=== PATIENT | male | born 1930 | race Caucasian/White ===

== ENCOUNTER 2017-08-21 15:03 | Observation (INO) | payer MEDICARE, OTHER ==
[2017-08-21] VITALS (7 sets, daily range): BP systolic 145–181; BP diastolic 73–120; PULSE 61–68; RESP 16–21; TEMP 97.8–98.3; O2SAT 95–98
[~2017-08-21] VITALS: Ht 180.3 cm; Wt 110.0 kg
[~2017-08-21 15:03] MED LIST: ASPI81TA82 PO; DIGO0.12 PO; DILTCD300 PO; ESCI10TA PO; FINA5TAB77 PO; FURO20 PO; KLORCONEF PO; LAMO25TA PO; LEVEMIR SQ; METO50TA PO; ROSU20 PO
--- NOTE | 2017-08-21 15:12 | PD ---
HPI Chief Complaint: SEIZURE Time Seen by Provider: 15:08 Travel History International Travel<30 days: No Contact w/Intl Traveler<30days: No Traveled to known affect area: No History of Present Illness HPI PATIENT HAD A SEIZURE (HAS A HISTORY OF, ON LAMICTAL) WITNESSED BY DAUGHTER, DESCRIBED TONIC CLONIC, BUT ACCORDING TO DAUGHTER , PT HAD A MUCH LONGER POST ICTAL PHASE THAN USUAL. 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 NO ALLEVIATING/AGGRAVATING FACTORS PFSH Past Medical History Hx Anticoagulant Therapy: Yes (asa 81mg) Atrial Fibrillation: Yes Cardiac Catheterization: Yes Cardiovascular Problems: Yes High Cholesterol: Yes Cerebrovascular Accident: Yes (htn, stroke) Diabetes: Yes (type II) Diminished Hearing: Yes Gastrointestinal Disorders: Yes (hx constipation) Genitourinary: Yes (frequent UTIs) Neurologic: Yes Immunizations Current: Yes Seizures: Yes Past Surgical History Cardiac Surgery: Yes (valve repair) Coronary Artery Bypass Graft: Yes (PVC filter in leg) Other Surgery: Yes (pvc filter) Social History Alcohol Use: No Tobacco Use: No Substance Use: No Allergies-Medications (Allergen,Severity, Reaction): Coded Allergies: penicillin G (Verified Allergy, Unknown, HIVES, 08/21/17) Reported Meds & Prescriptions Reported Meds & Active Scripts Active Reported Levemir Inj (Insulin Detemir) 1,000 unit/ 10 ML Vial 45 Units SQ HS Do not mix with any other Insulin. Lasix (Furosemide) 40 Mg Tab 40 Mg PO DAILY@1600 Crestor (Rosuvastatin Calcium) 20 Mg Tab 20 Mg PO DAILY@1600 Aspirin 81 Mg Chew 81 Mg PO DAILY Diltiazem ER 24 HR 360 Mg Hieu 360 Mg PO DAILY Lanoxin (Digoxin) 125 Mcg Tablet 125 Mcg PO DAILY Metoprolol Tartrate 50 Mg Tab 50 Mg PO BID Review of Systems Except as stated in HPI: all other systems reviewed are Neg Neurologic: Positive: Seizures Physical Exam Narrative GENERAL: SKIN: Warm and dry. HEAD: Atraumatic. Normocephalic. EYES: Pupils equal and round. No scleral icterus. No injection or drainage. ENT: No nasal bleeding or discharge. Mucous membranes pink and moist. NECK: Trachea midline. No JVD. CARDIOVASCULAR: Regular rate and rhythm. RESPIRATORY: No accessory muscle use. Clear to auscultation. Breath sounds equal bilaterally. GASTROINTESTINAL: Abdomen soft, non-tender, nondistended. Hepatic and splenic margins not palpable. MUSCULOSKELETAL: Extremities without clubbing, cyanosis, or edema. No obvious deformities. NEUROLOGICAL: Awake and alert. PATIENT HAS RIGHT SIDED HEMIPARESIS OF RT FACE/ RT ARM/RT LE PSYCHIATRIC: Appropriate mood and affect; insight and judgment normal. Data Data Last Documented VS Orders Orders Electrocardiogram (08/21/17 15:12) Complete Blood Count With Diff (08/21/17 15:12) Comprehensive Metabolic Panel (08/21/17 15:12) Prothrombin Time / Inr (Pt) (08/21/17 15:12) Act Partial Throm Time (Ptt) (08/21/17 15:12) Troponin I (08/21/17 15:12) Thyroid Stimulating Hormone (08/21/17 15:12) Urinalysis - C+S If Indicated (08/21/17 15:12) Chest, Single Ap (08/21/17 15:12) Ct Brain W/O Iv Contrast(Rout) (08/21/17 15:12) Blood Glucose (08/21/17 15:12) Ecg Monitoring (08/21/17 15:12) Iv Access Insert/Monitor (08/21/17 15:12) Oximetry (08/21/17 15:12) Sodium Chloride 0.9% Flush (Ns Flush) (08/21/17 15:15) Drug Screen, Random Urine (08/21/17 15:12) Alcohol (Ethanol) (08/21/17 15:12) Tylenol (Acetaminophen) (08/21/17 15:12) Salicylates (Aspirin) (08/21/17 15:12) Admit Order (Ed Use Only) (08/21/17 18:55) Labs Laboratory Tests Test 08/21/17 15:30 08/21/17 16:00 White Blood Count 8.3 TH/MM3 Red Blood Count 5.09 MIL/MM3 Hemoglobin 16.0 GM/DL Hematocrit 47.9 % Mean Corpuscular Volume 94.0 FL Mean Corpuscular Hemoglobin 31.5 PG Mean Corpuscular Hemoglobin Concent 33.5 % Red Cell Distribution Width 14.7 % Platelet Count 110 TH/MM3 Mean Platelet Volume 10.4 FL Neutrophils (%) (Auto) 74.5 % Lymphocytes (%) (Auto) 13.1 % Monocytes (%) (Auto) 10.0 % Eosinophils (%) (Auto) 1.5 % Basophils (%) (Auto) 0.9 % Neutrophils # (Auto) 6.2 TH/MM3 Lymphocytes # (Auto) 1.1 TH/MM3 Monocytes # (Auto) 0.8 TH/MM3 Eosinophils # (Auto) 0.1 TH/MM3 Basophils # (Auto) 0.1 TH/MM3 CBC Comment DIFF FINAL Differential Comment Prothrombin Time 11.1 SEC Prothromb Time International Ratio 1.0 RATIO Activated Partial Thromboplast Time 29.7 SEC Blood Urea Nitrogen 20 MG/DL Creatinine 1.06 MG/DL Random Glucose 275 MG/DL Total Protein 7.8 GM/DL Albumin 3.5 GM/DL Calcium Level 8.8 MG/DL Alkaline Phosphatase 150 U/L Aspartate Amino Transf (AST/SGOT) 15 U/L Alanine Aminotransferase (ALT/SGPT) 21 U/L Total Bilirubin 0.7 MG/DL Sodium Level 135 MEQ/L Potassium Level 4.0 MEQ/L Chloride Level 98 MEQ/L Carbon Dioxide Level 29.8 MEQ/L Anion Gap 7 MEQ/L Estimat Glomerular Filtration Rate 66 ML/MIN Troponin I 0.10 NG/ML Thyroid Stimulating Hormone 3rd Gen 1.460 uIU/ML Salicylates Level LESS THAN 1.7 MG/DL Acetaminophen Level LESS THAN 2.0 MCG/ML Ethyl Alcohol Level LESS THAN 3 MG/DL Urine Color YELLOW Urine Turbidity CLEAR Urine pH 6.5 Urine Specific [place] 1.020 Urine Protein 300 mg/dL Urine Glucose (UA) 300 mg/dL Urine Ketones NEG mg/dL Urine Occult Blood TRACE Urine Nitrite NEG Urine Bilirubin NEG Urine Urobilinogen 4.0 MG/DL Urine Leukocyte Esterase NEG Urine RBC 1 /hpf Urine WBC LESS THAN 1 /hpf Urine Mucus FEW /lpf Microscopic Urinalysis Comment CATH-CULT NOT IND Urine Opiates Screen NEG Urine Barbiturates Screen NEG Urine Amphetamines Screen NEG Urine Benzodiazepines Screen NEG Urine Cocaine Screen NEG Urine Cannabinoids Screen NEG MDM Medical Decision Making Medical Screen Exam Complete: Yes Emergency Medical Condition: Yes Medical Record Reviewed: Yes Interpretation(s) AFIB WITH CVR, RBBB Differential Diagnosis POST ICTAL V ICH V UTI V PNA V ELECTROLYTE ABNL Narrative Course ON EVALUATION PATIENT WAS FOUND TO HAVE NO ICH ON CT SCAN, NO E/O UTI, NEG TOX SCREEN, NO DIG TOXICITY, NO ANEMIA OR LEUKOCYTOSIS. ELECTROLYTES WERE WNL, HOWEVER ELEVATED TROPONIN AND HYPERGLYCEMIA. PATIENT WILL BE ADMITTED DUE TO POSSIBLE NONSTEMI Critical Care Narrative CRITICAL CARE NOTE: With evaluation of the patient, labs, EKG, receipt of radiologic studies, administration of medications, reevaluation the patient and discussion of the patient with the admitting physicians, the total critical care time was [45] minutes. Time to perform other separately billable procedures was not included in the critical care time. Diagnosis Primary Impression: SEIZURE (HISTORY OF) Additional Impression: ELEVATED TROPONIN Admitting Information Admitting Physician Requests: Observation Scripts Lamotrigine (Lamictal) 25 Mg Tab 50 MG PO Q8H for seizures, #90 TAB Prov: Chioma Davidson MD 08/23/17 Losartan (Cozaar) 50 Mg Tab 100 MG PO DAILY for hypertension, #30 TAB Prov: Chioma Davidson MD 08/23/17 Lisinopril (Lisinopril) 5 Mg Tab 5 MG PO DAILY for hypertension, #30 TAB Prov: Chioma Davidson MD 08/23/17 Oj Friedman MD Aug 21, 2017 15:12
[2017-08-21] MEDS ORDERED: SODIUM CHLORIDE 0.9% FLUSH 5 ML FLUSH IV FLUSH PRN (15:15)
[2017-08-21] MEDS ORDERED: DILT1TAB8 PO (15:38)
[2017-08-21] MEDS ORDERED: LANO0.12 PO (15:38)
[2017-08-21] MEDS ORDERED: ROSU20 PO (15:38)
[2017-08-21] MEDS ORDERED: ASPI81CH PO (15:38)
[2017-08-21] MEDS ORDERED: FURO1TAB60 PO (15:38)
[2017-08-21] MEDS ORDERED: LAMO25TA PO (15:38)
[2017-08-21] MEDS ORDERED: METO50TA PO (15:38)
[2017-08-21] MEDS ORDERED: LEVEMIR SQ (15:38)
[2017-08-21 15:53] LABS: AUTOMATED NEUTROPHIL # 6.2 TH/MM3 (1.8-7.7); BASOPHIL # 0.1 TH/MM3 (0-0.2); BASOPHIL % 0.9 % (0.0-2.0); EOSINOPHIL # 0.1 TH/MM3 (0-0.4); EOSINOPHIL % 1.5 % (0.0-4.0); HEMATOCRIT 47.9 % (39.0-51.0); HEMO FLAGS DIFF FINAL; LYMPH % 13.1 % (9.0-44.0); LYMPHOCYTE # 1.1 TH/MM3 (1.0-4.8); MEAN CORPUSCULAR HEMOGLOBIN 31.5 PG (27.0-34.0); MEAN CORPUSCULAR HGB CONC 33.5 % (32.0-36.0); NEUT % 74.5 % (16.0-70.0); PLATELET COUNT 110 TH/MM3 (150-450); RED BLOOD COUNT 5.09 MIL/MM3 (4.50-5.90); RED CELL DISTRIBUTION WIDTH 14.7 % (11.6-17.2); WHITE BLOOD COUNT 8.3 TH/MM3 (4.0-11.0)
[2017-08-21 16:11] LABS: APTT (PATIENT) 29.7 SEC (24.3-30.1); PROTHROMBIN TIME - PATIENT 11.1 SEC (9.8-11.6)
[2017-08-21 16:13] LABS: ALT (GPT) 21 U/L (12-78); ANION GAP 7 MEQ/L (5-15); AST (GOT) 15 U/L (15-37); BICARBONATE 29.8 MEQ/L (21.0-32.0); BLOOD UREA NITROGEN 20 MG/DL (7-18); CHLORIDE 98 MEQ/L (98-107); GLOMERULAR FILTRATION RATE 66 ML/MIN (>89); SODIUM (NA) 135 MEQ/L (136-145)
[2017-08-21 16:19] LABS: ACETAMINOPHEN LESS THAN 2.0 MCG/ML (10.0-30.0); ALCOHOL LESS THAN 3 MG/DL (0-5)
[2017-08-21 16:23] LABS: ALKALINE PHOSPHATASE 150 U/L (45-117); TOTAL BILIRUBIN ADULT 0.7 MG/DL (0.2-1.0)
--- NOTE | 2017-08-21 16:27 | RADRPT ---
EXAM DATE/TIME: 08/21/2017 15:48 [facility] COMPARISON: CHEST SINGLE AP, January 14, 2016, 10:53. INDICATIONS : Seizures. MEDICAL HISTORY : Stroke. Cardiovascular disease. Seizures SURGICAL HISTORY : Valve replacement. ENCOUNTER: Initial ACUITY: 1 day PAIN SCORE: 0/10 LOCATION: Bilateral chest FINDINGS: Cardiac valvular prosthesis, median sternotomy and cardiomegaly again noted. Aortic calcification is present. The lungs are clear. CONCLUSION: No significant change has occurred. Matt Valerio MD on August 21, 2017 at 16:25 Board Certified Radiologist. This report was verified electronically.
[2017-08-21 17:00] LABS: BLOOD, URINE TRACE (NEG); GLUCOSE,URINE 300 mg/dL (NEG); KETONE, URINE NEG (NEG); MUCUS URINE FEW /lpf (OCC); NITRITE,URINE NEG (NEG); PH, URINE 6.5 (5.0-8.5); URINE COLOR YELLOW (YELLW/STRAW)
[2017-08-21 17:01] LABS: COMMENT (UR) CATH-CULT NOT IND; CULTURE IF INDICATED CATH CULTURE NOT IND
--- NOTE | 2017-08-21 17:42 | RADRPT ---
EXAM DATE/TIME: 08/21/2017 17:14 [facility] COMPARISON: CT BRAIN W/O CONTRAST, January 14, 2016, 11:55. INDICATIONS : Seizure. RADIATION DOSE: 41.32 CTDIvol (mGy) MEDICAL HISTORY : Cardiovascular disease. Stroke Seizures. SURGICAL HISTORY : CABG ENCOUNTER: Initial ACUITY: 1 day PAIN SCALE: 0/10 LOCATION: cranial TECHNIQUE: Multiple contiguous axial images were obtained of the head. Using automated exposure control and adj ustment of the mA and/or kV according to patient size, radiation dose was kept as low as reasonably a chievable to obtain optimal diagnostic quality images. DICOM format image data is available electro nically for review and comparison. FINDINGS: There is atrophy and encephalomalacia from a remote left MCA infarct, with ex vacuo dilatation of the left lateral ventricle. There is a stable hyperdensity in the left frontal region measuring 2.5 cm c haracteristic of a dystrophic calcification/calcified mass unchanged. No fractures. There are no sign s of acute infarct, or intracranial hemorrhage. CONCLUSION: No significant change has occurred. Matt Valerio MD on August 21, 2017 at 17:38 Board Certified Radiologist. This report was verified electronically.
[2017-08-21] MEDS ORDERED: LORazepam 2 MG/ML VIAL IV PUSH PRN (20:45)
[2017-08-21] MEDS ORDERED: GLUCAGON 1 MG/ML VIAL OTHER PRN (20:45)
[2017-08-21] MEDS ORDERED: DEXTROSE 50% IN WATER 50 ML VIAL(D50) IV PUSH PRN (20:45)
[2017-08-21] MEDS: INSULIN DETEMIR 100 UNITS/ML VIAL SQ SCH (21:00)
[2017-08-21] MEDS: ENOXAPARIN SODIUM 40 MG/0.4 ML SYRINGE SQ SCH (21:43)
[2017-08-21] MEDS: INSULIN ASPART SUPPLEMENTAL SCALE SQ SCH (21:43)
[2017-08-21] MEDS: METOPROLOL TARTRATE 50 MG TAB PO SCH (22:53)
[2017-08-21] MEDS: SODIUM CHLOR 0.45% 1000 ML INJ 1,000 ML IV SCH (22:53)
[2017-08-21 23:41] LABS: HDL CHOLESTEROL 42.2 MG/DL (40.0-60.0)
[2017-08-22 03:11] VITALS: BP 147/80; PULSE 62; RESP 18; TEMP 98.1; O2SAT 95
[2017-08-22 07:22] VITALS: BP 189/84; PULSE 65; RESP 18; TEMP 98; O2SAT 95
[2017-08-22] MEDS ORDERED: lamoTRIgine 25 MG TAB PO SCH ×3 (09:00→16:00)
[2017-08-22] MEDS ORDERED: DILTIAZEM-CD 180 MG CAP ER PO SCH (09:00)
[2017-08-22] MEDS: SODIUM CHLOR 0.45% 1000 ML INJ 1,000 ML IV SCH ×2 (09:24→21:45)
[2017-08-22] MEDS: ASPIRIN 81 MG CHEW TAB PO SCH (09:25)
[2017-08-22] MEDS: FINASTERIDE 5 MG TAB PO SCH (09:25)
[2017-08-22] MEDS: METOPROLOL TARTRATE 50 MG TAB PO SCH ×2 (09:25→21:45)
[2017-08-22] MEDS: DIGOXIN 0.125 MG TAB PO SCH (09:25)
[2017-08-22] MEDS: INSULIN ASPART SUPPLEMENTAL SCALE SQ SCH ×4 (09:29→21:45)
[2017-08-22] MEDS ORDERED: ENALAPRILAT 1.25 MG/ML VIAL IV PUSH PRN (09:30)
--- NOTE | 2017-08-22 09:34 | HHI.HP ---
HPI Service [facility] Primary Care Physician Manuel Goss MD Admission Diagnosis ELEVATED TROPONIN/SEIZURE Diagnoses: Chief Complaint: seizure Travel History International Travel<30 Days: No Contact w/Intl Traveler <30 Da: No Traveled to Known Affected Are: No History of Present Illness Mr. Huff is an 87-year-old elderly male with significant past medical history of seizures since 2009, stroke with right-sided hemiparesis, hypertension, hyperlipidemia, A. fib, history of DVT with IVC filter, possible underlying dementia. Patient presented to the emergency room after he was noted having a seizure. Patient is unable to provide information, information is obtained from the chart in the patient's daughter who is the caregiver. According to the daughter, patient has had history of seizures since 2009 after his stroke. Since then he has tried Keppra and Dilantin with no improvement. He is currently on Lamictal, has been doing a relatively good job of controlling the grandmal seizures. However he continues to have a small focal type seizures, approximately 2-3 a week. He has episodes off jerking and stiffening followed by postictal phase that usually lasts a few minutes where he closes his eyes and sleeps. Yesterday, he had small seizure around 2pm then had another later in the day and noted hthat the postictal phase was longer than usual and he was sticking his tongue out. She attempted to wake him up and he appeared more lethargic than usual. Indicates that the last grandmal seizure was approximately 2 years ago. He follows up with neurologist Dr. Kent as outpatient. Patient has a CVA in 2010 inches stand he's had right hemiparesis and has garbled speech. Indicates that he is usually oriented to others and self and does follow commands. Has noticed in the last couple days he has been refusing medications and has not been taking them on time but does take them all. Patient is mainly wheelchair and bedbound. He requires assistance with all ADLs. In the emergency room, patient was evaluated. Laboratory workup was completed. He was noted with elevated troponin, first one was 0.10 the next 0.09 and 0.09. Patient is asked if he had pain he states he has pain everywhere however he is difficult to obtain any information. His blood pressure was noted elevated on admission, this morning he is 189/84. His hvac installation technician is Dr. Lopez. CT of the head did not show any acute findings. At this time, patient is resting comfortably, he wants something to eat and drink. End-of-life care issues have been discussed with daughter, she is requesting DO NOT RESUSCITATE. Patient is admitted for further evaluation and treatment. Review of Systems ROS Limitations: Altered Mental Status, Poor Historian Past Family Social History Past Medical History Hypertension Type 2 diabetes Hyperlipidemia History DVT, has IVC filter Atrial fibrillation, used to be on Coumadin. One of the strokes he had was while being on Coumadin. No longer takes anticoagulation, only on baby aspirin. Seizures since 2009 Stroke in 2009 and then had another one in 2012, has residual right-sided hemiparesis with speech difficulty. Constipation Frequent UTIs Enlarged prostate Right leg cellulitis, has chronic edema. Past Surgical History CABG and mitral valve repair in 2004 IVC filter insertion Right forearm and right leg repair after fracture. Dental extraction Reported Medications Reported Meds & Active Scripts Active Reported Levemir Inj (Insulin Detemir) 1,000 unit/ 10 ML Vial 45 Units SQ HS Do not mix with any other Insulin. Lasix (Furosemide) 40 Mg Tab 40 Mg PO DAILY@1600 Crestor (Rosuvastatin Calcium) 20 Mg Tab 20 Mg PO DAILY@1600 Lamotrigine 25 Mg Tab 50 Mg PO DAILY@1600 Aspirin 81 Mg Chew 81 Mg PO DAILY Diltiazem ER 24 HR 360 Mg Hieu 360 Mg PO DAILY Lanoxin (Digoxin) 125 Mcg Tablet 125 Mcg PO DAILY Metoprolol Tartrate 50 Mg Tab 50 Mg PO BID Allergies: Coded Allergies: penicillin G (Verified Allergy, Unknown, HIVES, 08/21/17) Active Ordered Medications Inpatient Medications Aspirin (Aspirin Chew) 81 mg DAILY PO ; Start 08/22/17 at 09:00 Atorvastatin Calcium (Lipitor) 40 mg DAILY@1600 PO ; Start 08/22/17 at 16:00 Dextrose (D50w (Vial) Inj) 50 ml UNSCH PRN IV PUSH HYPOGLYCEMIA-SEE COMMENTS; Start 08/21/17 at 20:45 Digoxin (Lanoxin) 0.125 mg DAILY PO ; Start 08/22/17 at 09:00 Diltiazem HCl (Cardizem Cd) 360 mg DAILY PO ; Start 08/22/17 at 09:00 Enoxaparin Sodium (Lovenox Inj) 40 mg Q24H SQ Last administered on 08/21/17 21 :43; Start 08/21/17 at 21:00 Finasteride (Proscar) 5 mg DAILY PO ; Start 08/22/17 at 09:00 Furosemide (Lasix) 40 mg DAILY@1600 PO ; Start 08/22/17 at 16:00 Glucagon (Glucagon Inj) 1 mg UNSCH PRN OTHER HYPOGLYCEMIA-SEE COMMENTS; Start 08/21/17 at 20:45 Insulin Aspart (NovoLOG SUPPLEMENTAL SCALE) 1 ACHS SLIDING SCALE SQ Last administered on 08/21/17 21:43; Start 08/21/17 at 21:00 Insulin Detemir (Levemir Inj) 45 units HS SQ ; Start 08/21/17 at 21:00 IV Flush (NS Flush) 2 ml UNSCH PRN IV FLUSH FLUSH AFTER USING IV ACCESS Last administered on 08/21/17 15:32; Start 08/21/17 at 15:15 Lamotrigine (LaMICtal) 50 mg Q12HR PO ; Start 08/22/17 at 09:00 Lorazepam (Ativan Inj) 1 mg Q4H PRN IV PUSH SEIZURE; Start 08/21/17 at 20:45 Metoprolol Tartrate (Lopressor) 50 mg BID PO Last administered on 08/21/17 22: 53; Start 08/21/17 at 21:00 Sodium Chloride 1,000 ml @ 84 mls/hr [id number] IV Last administered on 22:53; Start 08/21/17 at 21:00 Family History Reviewed, noncontributory Social History Patient is a , lives with daughter who is his caregiver. He also has a home health aid who comes in for 6 hours a day to help. No smoking, no alcohol , no substance abuse. Physical Exam Vital Signs Vital Signs Date Time Temp Pulse Resp B/P (MAP) Pulse Ox O2 Delivery O2 Flow Rate FiO2 08/22/17 07:22 98.0 65 18 189/84 (119) 95 08/22/17 03:11 98.1 62 18 147/80 (102) 95 08/21/17 23:11 98.2 64 18 159/120 (133) 95 08/21/17 21:53 70 18 181/83 (115) 96 08/21/17 20:19 98.3 62 21 169/79 (109) 95 Room Air 08/21/17 18:32 97.8 61 16 161/82 (108) 97 Room Air 08/21/17 17:08 97.8 68 17 145/73 (97) 98 Room Air 08/21/17 15:19 17 97 Room Air 08/21/17 15:10 67 18 98 Room Air 08/21/17 15:06 97.8 67 18 179/84 (115) 97 Physical Exam GENERAL: This is a well-nourished, well-developed patient, in no apparent distress. SKIN: No rashes, ecchymoses or lesions. Cool and dry. HEAD: Atraumatic. Normocephalic. No temporal or scalp tenderness. EYES: Pupils equal round and reactive. Extraocular motions intact. No scleral icterus. No injection or drainage. ENT: Nose without bleeding, purulent drainage or septal hematoma. Throat without erythema, tonsillar hypertrophy or exudate. Uvula midline. Airway patent. NECK: Trachea midline. No JVD or lymphadenopathy. Supple, nontender, no meningeal signs. CARDIOVASCULAR: Irregularly irregular, no murmurs. RESPIRATORY: Clear to auscultation. Breath sounds equal bilaterally. No wheezes , rales, or rhonchi. GASTROINTESTINAL: Abdomen soft, non-tender, nondistended. No hepato-splenomegaly , or palpable masses. No guarding. MUSCULOSKELETAL: No joint abnormality. Atrophy to both lower extremities. Right leg and foot noted edematous, 1-2+, this is chronic. Bilateral pedal pulses 2+ bilaterally. NEUROLOGICAL: Awake, oriented to self and others. Speech garbled. Speaks mainly Croatian. Doesn't follow commands consistently. Right-sided hemiparesis. Facial droop. Laboratory Laboratory Tests Test 08/21/17 15:30 08/21/17 16:00 08/21/17 23:00 08/22/17 05:45 White Blood Count 8.3 Red Blood Count 5.09 Hemoglobin 16.0 Hematocrit 47.9 Mean Corpuscular Volume 94.0 Mean Corpuscular Hemoglobin 31.5 Mean Corpuscular Hemoglobin Concent 33.5 Red Cell Distribution Width 14.7 Platelet Count 110 Mean Platelet Volume 10.4 Neutrophils (%) (Auto) 74.5 Lymphocytes (%) (Auto) 13.1 Monocytes (%) (Auto) 10.0 Eosinophils (%) (Auto) 1.5 Basophils (%) (Auto) 0.9 Neutrophils # (Auto) 6.2 Lymphocytes # (Auto) 1.1 Monocytes # (Auto) 0.8 Eosinophils # (Auto) 0.1 Basophils # (Auto) 0.1 CBC Comment DIFF FINAL Differential Comment Prothrombin Time 11.1 Prothromb Time International Ratio 1.0 Activated Partial Thromboplast Time 29.7 Blood Urea Nitrogen 20 Creatinine 1.06 Random Glucose 275 Total Protein 7.8 Albumin 3.5 Calcium Level 8.8 Alkaline Phosphatase 150 Aspartate Amino Transf (AST/SGOT) 15 Alanine Aminotransferase (ALT/SGPT) 21 Total Bilirubin 0.7 Sodium Level 135 Potassium Level 4.0 Chloride Level 98 Carbon Dioxide Level 29.8 Anion Gap 7 Estimat Glomerular Filtration Rate 66 Troponin I 0.10 0.09 0.09 Thyroid Stimulating Hormone 3rd Gen 1.460 Salicylates Level LESS THAN 1.7 Acetaminophen Level LESS THAN 2.0 Ethyl Alcohol Level LESS THAN 3 Urine Color YELLOW Urine Turbidity CLEAR Urine pH 6.5 Urine Specific [place] 1.020 Urine Protein 300 Urine Glucose (UA) 300 Urine Ketones NEG Urine Occult Blood TRACE Urine Nitrite NEG Urine Bilirubin NEG Urine Urobilinogen 4.0 Urine Leukocyte Esterase NEG Urine RBC 1 Urine WBC LESS THAN 1 Urine Mucus FEW Microscopic Urinalysis Comment CATH-CULT NOT IND Urine Opiates Screen NEG Urine Barbiturates Screen NEG Urine Amphetamines Screen NEG Urine Benzodiazepines Screen NEG Urine Cocaine Screen NEG Urine Cannabinoids Screen NEG Triglycerides Level 85 Cholesterol Level 85 LDL Cholesterol 26 HDL Cholesterol 42.2 Cholesterol/HDL Ratio 2.01 Result Diagram: 08/21/17 1530 08/21/17 1530 Imaging Last Impressions Head CT 08/21/17 151 Signed Impressions: Service Date/Time: Monday, August 21, 2017 17:14 - CONCLUSION: No significant change has occurred. Matt Valerio MD Chest X-Ray 08/21/17 151 Signed Impressions: Service Date/Time: Monday, August 21, 2017 15:48 - CONCLUSION: No significant change has occurred. MD Carlos Bakeri VTE Risk Assessment Caprini VTE Risk Assessment: Mod/High Risk (score >= 2) Caprini Risk Assessment Model Point Value = 1 Point Value = 2 Point Value = 3 Point Value = 5 Age 41-60 Minor surgery BMI > 25 kg/m2 Swollen legs Varicose veins or History of unexplained or recurrent spontaneous Oral contraceptives or hormone replacement Sepsis (< 1 month) Serious lung disease, including pneumonia (< 1 month) Abnormal pulmonary function Acute myocardial infarction Congestive heart failure (< 1 month) History of inflammatory bowel disease Medical patient at bed rest Age 61-74 Arthroscopic surgery Major open surgery (> 45 min) Laparoscopic surgery (> 45 min) Malignancy Confined to bed (> 72 hours) Immobilizing plaster cast Central venous access Age >= 75 History of VTE Family history of VTE Factor V Leiden Prothrombin [id number] Lupus anticoagulant Anticardiolipin antibodies Elevated serum homocysteine Heparin-induced thrombocytopenia Other congenital or acquired thrombophilia Stroke (< 1 month) Elective arthroplasty Hip, pelvis, or leg fracture Acute spinal cord injury (< 1 month) Prophylaxis Regimen Total Risk Factor Score Risk Level Prophylaxis Regimen 0-1 Low Early ambulation 2 Moderate Order ONE of the following: *Sequential Compression Device (SCD) *Heparin 5000 units SQ BID 3-4 Higher Order ONE of the following medications: *Heparin 5000 units SQ TID *Enoxaparin/Lovenox 40 mg SQ daily (WT < 150 kg, CrCl > 30 mL/min) *Enoxaparin/Lovenox 30 mg SQ daily (WT < 150 kg, CrCl > 10-29 mL/min) *Enoxaparin/Lovenox 30 mg SQ BID (WT < 150 kg, CrCl > 30 mL/min) AND/OR *Sequential Compression Device (SCD) 5 or more Highest Order ONE of the following medications: *Heparin 5000 units SQ TID (Preferred with Epidurals) *Enoxaparin/Lovenox 40 mg SQ daily (WT < 150 kg, CrCl > 30 mL/min) *Enoxaparin/Lovenox 30 mg SQ daily (WT < 150 kg, CrCl > 10-29 mL/min) *Enoxaparin/Lovenox 30 mg SQ BID (WT < 150 kg, CrCl > 30 mL/min) AND *Sequential Compression Device (SCD) Assessment and Plan Problem List: (1) Recurrent seizures ICD Codes: G40.909 - Epilepsy, unspecified, not intractable, without status epilepticus Status: Acute (2) Elevated troponin ICD Codes: R74.8 - Abnormal levels of other serum enzymes Status: Acute (3) Hypertension, uncontrolled ICD Codes: I10 - Essential (primary) hypertension Status: Acute (4) History of CVA with residual deficit ICD Codes: I69.30 - Unspecified sequelae of cerebral infarction Status: Chronic (5) Diabetes 1.5, managed as type 2 ICD Codes: E10.9 - Type 1 diabetes mellitus without complications Status: Chronic (6) Hyperlipidemia ICD Codes: E78.5 - Hyperlipidemia, unspecified Status: Chronic (7) Atrial fibrillation ICD Codes: I48.91 - Unspecified atrial fibrillation Status: Chronic (8) Hx of deep venous thrombosis ICD Codes: Z86.718 - Personal history of other venous thrombosis and embolism Status: Chronic Assessment and Plan Admit to Dr. Cullen 87-year-old elderly male with history of stroke and right-sided hemiparesis and grand mal seizures. Presented to the emergency room after having a seizure with a prolonged postictal state. Recurrent seizures -Continue with seizure precautions -Neurology consultation -Continue with Lamictal 50 mg by mouth twice a day -EEG has been ordered -Ativan as needed for seizures Elevated troponin, rule out acute coronary syndrome. -Troponin 3 sets completed, results indeterminate. Patient was noted with elevated blood pressure. -Cardiology consultation -Continuous cardiac telemetry -Continue with aspirin 81 mg by mouth daily Hypertension uncontrolled -Continue with Lasix 40 mg by mouth daily -Continue with diltiazem 360 mg by mouth daily -Continue with Lopressor 50 mg by mouth twice a day -We'll add Vasotec 1.25 mg IV every 6 when necessary for systolic 170 and diastolic and 90 Type 2 diabetes -Accu-Cheks before meals and at bedtime with insulin therapy as needed Atrial fibrillation, stable -Continue with diltiazem and digoxin -Continue with aspirin Hyperlipidemia -Continue with atorvastatin 40 mg by mouth daily History DVT, has IVC filter -Lovenox 40 mg subcutaneous daily for DVT prophylaxis Home medications reviewed, initiated as indicated Consult physical therapy for evaluation End-of-life care issues have been addressed, patient is DO NOT RESUSCITATE per POAs request Lovenox for DVT prophylaxis Plan of care discussed with the patient's daughter, attending and RN. Further management of the patient will be dependent on the hospital course This patient was seen by myself and Dr. Cullen, this note is written his behalf Problem Qualifiers (1) Hyperlipidemia: Qualified Codes: E78.5 - Hyperlipidemia, unspecified (2) Atrial fibrillation: Qualified Codes: I48.2 - Chronic atrial fibrillation Karime Olivier Aug 22, 2017 09:33
--- NOTE | 2017-08-22 10:11 | MB ---
cc: MICHELLE MUSE M.D. DATE OF CONSULTATION 08/22/2017 REASON FOR CONSULTATION Recurrent seizure. HISTORY OF PRESENT ILLNESS Mr. 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 He recovered from the speech deficit but still has residual right-sided weakness and secondary seizure disorder, now presenting with recurrent seizure. His daughter relates that he has had grand-mal seizures in the past where he loses consciousness with generalized tonic-clonic activity. He was on a number of seizure medications including Dilantin and Keppra but was unable to tolerate these or they did not work for his seizures and has been on Lamictal 50 mg b.i.d. which has been the most effective for his seizures and most tolerable. However, he continues 2-3 times per week with what his daughter relates as small seizures with jerking on the left side and staring episodes. He had a fairly prolonged episode yesterday and postictally was more somnolent so she brought him to the ER because it was more pronounced than prior. She notices that if he is late in taking a Lamictal dose, he tends to have a seizures. PAST MEDICAL HISTORY 1. History of stroke in the past. 2. Atrial fibrillation. 3. Hypertension. 4. Type 2 diabetes. 5. Frequent UTIs. 6. Coronary artery bypass procedure. 7. Valve repair surgery. 8. PVC in the leg. MEDICATIONS AT HOME He is on - 1. Lamictal 50 mg b.i.d. 2. Aspirin 81 mg daily. 3. Diltiazem ER 360 mg daily. 4. Digoxin 125 mcg daily. 5. Metoprolol 50 mg b.i.d. 6. Crestor 20 mg daily. 7. Lasix 40 mg daily. 8. Levemir insulin. SOCIAL HISTORY Denies alcohol use. NEUROLOGICAL EXAMINATION VITAL SIGNS: Blood pressure of 189/84, pulse 65, respiratory rate is 18, temperature 98 degrees. HIGHER CORTICAL FUNCTION: He is alert. He speaks well in his [place] language. He does not speak any Canadian. CRANIAL NERVES: Right upper motor neuron palsy. MOTOR EXAM: He has got a right hemiplegia with essentially 0/5 strength in the right arm and right leg. Normal strength on the left. REFLEXES: Symmetric. IMAGING STUDIES CT of the brain shows normal left MCA stroke but no acute changes. LABORATORY DATA The white count is 8300, hemoglobin 16, hematocrit 47.9%, platelets 110,000. PT 11.1, INR 1, APTT 29.7. Sodium is 135, potassium if 4, chloride 98, CO2 30. The BUN is 20, creatinine 1.06, GFR 66, glucose 275, AST 15, ALT 21, alkaline phosphatase 150, triglycerides 85, cholesterol 85, LDL 26, HDL 42.2. Toxicology screen negative. IMPRESSION History of left MCA stroke with secondary seizures. He continues with fairly frequent focal seizures. I suspect the one he had yesterday was a focal seizures. RECOMMENDATIONS 1. We will try to raise the Lamictal to 50 mg t.i.d. to see if he can tolerate this. 2. We will review the EEG. 3. Also obtain an MRI of the brain to be sure there is no other cause of his seizures, although I suspect this previous stroke may be the cause but I concerned that his daughter states that he definitely has left-sided tonic-clonic activity. Thank you for asking us to see this patient in consult. MD RALPH Mike/GRETCHEN /9:40 AM /9:45 AM
[2017-08-22] MEDS ORDERED: GADODIAMIDE PF 287 MG/ML 5 ML VIAL (for RAD MRI) IVCONTRAST ONE (11:30)
[2017-08-22 12:00] VITALS: BP 155/80; PULSE 70; RESP 18; TEMP 98.1; O2SAT 98
--- NOTE | 2017-08-22 12:10 | RADRPT ---
EXAM DATE/TIME: 08/22/2017 11:16 [facility] COMPARISON: MRI BRAIN W & W/O CONTRAST, December 26, 2015, 15:28. CT BRAIN W/O CONTRAST, August 21, 2017, 17:1 4. INDICATIONS : Seizures. CONTRAST: 22 cc Omniscan (gadodiamide) IV MEDICAL HISTORY : Seizures. Hypertension. Stroke SURGICAL HISTORY : Peripheral vascular stent. ENCOUNTER: Initial ACUITY: 1 day PAIN SCORE: 0/10 LOCATION: cranial TECHNIQUE: Multiplanar, multisequence MRI of the brain was performed both prior to and following the administrat ion of paramagnetic contrast. FINDINGS: Examination and remains stable. There is central and cortical atrophy secondary to remote infarct lef t hemisphere middle cerebral artery distribution. Midline structures and major anatomic landmarks are otherwise correctly situated with no acute intracranial hemorrhage, extracerebral defects, mass effe ct or acute infarction. Areas centrally within the area of infarction a left parietal region reveals dystrophic stable calcification. CONCLUSION: Stable MRI of the brain. Alexx Alonzo MD on August 22, 2017 at 12:05 Board Certified Radiologist. This report was verified electronically.
--- NOTE | 2017-08-22 12:46 | EKG ---
Date Performed: 08/21/2017 Time Performed: 15:58:34 PTAGE: 87 years EKG: ATRIAL FIBRILLATION RIGHT BUNDLE BRANCH BLOCK ABNORMAL ECG Compared to prior tracing no sig nificant change PREVIOUS TRACING : 01/14/2016 09.48 DOCTOR: Grayson García Interpretating Date/Time 08/22/2017 12:45:33
--- NOTE | 2017-08-22 15:38 | PD.CONS ---
HPI Service Cardiology physicians Consult Requested By Dr Singh Reason for Consult Elevated troponin Primary Care Physician Manuel Goss MD History of Present Illness The patient is an 87 year old male known to our practice last evaluated 07/2016 with a medical history of ischemic and hemorrhagic CVAs (unclear whether hemorrhagic conversion or two primary strokes) while on coumadin, chronic atrial fibrillation, ASHD, RBBB, HTN, seizures, MV repair, IVC filter, and chronic right leg edema. The patient presented to the ER per his daughter for a recurrent tonic clonic seizure with concern for airway obstruction and a more pronounced post ictal state with increased solmolance. Work up revealed elevated troponin and hypertension. Left lower extremity edema worse compared to last office visit. The patient is dyphasic and cannot provide ROS. Per the daughter, she has not noted him complaining of increased SOB or CP. (Cathi Pisano) Review of Systems ROS Limitations: Other (Dysphagia ) (Cathi Pisano) Past Family Social History Allergies: Coded Allergies: penicillin G (Verified Allergy, Unknown, HIVES, 08/21/17) Past Medical History See HPI Past Surgical History CABG and mitral valve repair in 2004 IVC filter insertion Right forearm and right leg repair after fracture. Dental extraction Reported Medications Reported Meds & Active Scripts Active Reported Levemir Inj (Insulin Detemir) 1,000 unit/ 10 ML Vial 45 Units SQ HS Do not mix with any other Insulin. Lasix (Furosemide) 40 Mg Tab 40 Mg PO DAILY@1600 Crestor (Rosuvastatin Calcium) 20 Mg Tab 20 Mg PO DAILY@1600 Lamotrigine 25 Mg Tab 50 Mg PO DAILY@1600 Aspirin 81 Mg Chew 81 Mg PO DAILY Diltiazem ER 24 HR 360 Mg Hieu 360 Mg PO DAILY Lanoxin (Digoxin) 125 Mcg Tablet 125 Mcg PO DAILY Metoprolol Tartrate 50 Mg Tab 50 Mg PO BID Active Ordered Medications Current Medications Medications (Trade) Dose Ordered Sig/Reynold Route Start Time Stop Time Status Last Admin (NS Flush) 2 ml UNSCH PRN IV FLUSH 08/21/17 15:15 08/21/17 15:32 (Aspirin Chew) 81 mg DAILY PO 08/22/17 09:00 08/22/17 09:25 (Lanoxin) 0.125 mg DAILY PO 08/22/17 09:00 08/22/17 09:25 (Cardizem Cd) 360 mg DAILY PO 10/9/17 09:00 08/22/17 09:29 (Lasix) 40 mg DAILY@1600 PO 08/22/17 16:00 (Levemir Inj) 45 units HS SQ 08/21/17 21:00 (Lopressor) 50 mg BID PO 08/21/17 21:00 08/22/17 09:25 (Lipitor) 40 mg DAILY@1600 PO 08/22/17 16:00 (D50w (Vial) Inj) 50 ml UNSCH PRN IV PUSH 08/21/17 20:45 (Glucagon Inj) 1 mg UNSCH PRN OTHER 08/21/17 20:45 (NovoLOG SUPPLEMENTAL SCALE) 1 ACHS SLIDING SCALE SQ 08/21/17 21:00 08/22/17 13:21 Sodium Chloride 1,000 ml @ 84 mls/hr [id number] IV 08/21/17 21:00 08/22/17 09:24 (Lovenox Inj) 40 mg Q24H SQ 08/21/17 21:00 08/21/17 21:43 (Ativan Inj) 1 mg Q4H PRN IV PUSH 08/21/17 20:45 (Proscar) 5 mg DAILY PO 08/22/17 09:00 08/22/17 09:25 (Vasotec Inj) 1.25 mg Q6H PRN IV PUSH 08/22/17 09:30 (LaMICtal) 50 mg Q8HR PO 08/22/17 14:00 Family History non contributory Social History Lives with daughter (Cathi Pisano) Physical Exam Vital Signs Vital Signs Date Time Temp Pulse Resp B/P (MAP) Pulse Ox O2 Delivery O2 Flow Rate FiO2 08/22/17 12:00 98.1 70 18 155/80 (105) 98 08/22/17 07:22 98.0 65 18 189/84 (119) 95 08/22/17 03:11 98.1 62 18 147/80 (102) 95 08/21/17 23:11 98.2 64 18 159/120 (133) 95 08/21/17 21:53 70 18 181/83 (115) 96 08/21/17 20:19 98.3 62 21 169/79 (109) 95 Room Air 08/21/17 18:32 97.8 61 16 161/82 (108) 97 Room Air 08/21/17 17:08 97.8 68 17 145/73 (97) 98 Room Air Physical Exam GENERAL: Elderly male in ER with daughter at bedside SKIN: Warm and dry. HEAD: Atraumatic. Normocephalic. EYES: Pupils equal and round. No scleral icterus. No injection or drainage. ENT: No nasal bleeding or discharge. NECK: Trachea midline CARDIOVASCULAR: Irreg irreg RESPIRATORY: No accessory muscle use. Clear to auscultation. Breath sounds equal bilaterally. Rales GASTROINTESTINAL: Abdomen soft, non-tender, nondistended. MUSCULOSKELETAL: Right hemiparesis, right lower extremity edema NEUROLOGICAL: Awake and alert. right hemiparesis, dysphagia PSYCHIATRIC: unable to assess Laboratory Laboratory Tests Test 08/21/17 16:00 08/21/17 23:00 08/22/17 05:45 Urine Color YELLOW Urine Turbidity CLEAR Urine pH 6.5 Urine Specific [place] 1.020 Urine Protein 300 Urine Glucose (UA) 300 Urine Ketones NEG Urine Occult Blood TRACE Urine Nitrite NEG Urine Bilirubin NEG Urine Urobilinogen 4.0 Urine Leukocyte Esterase NEG Urine RBC 1 Urine WBC LESS THAN 1 Urine Mucus FEW Microscopic Urinalysis Comment CATH-CULT NOT IND Urine Opiates Screen NEG Urine Barbiturates Screen NEG Urine Amphetamines Screen NEG Urine Benzodiazepines Screen NEG Urine Cocaine Screen NEG Urine Cannabinoids Screen NEG Troponin I 0.09 0.09 Triglycerides Level 85 Cholesterol Level 85 LDL Cholesterol 26 HDL Cholesterol 42.2 Cholesterol/HDL Ratio 2.01 (Cathi Pisano) Result Diagram: 08/21/17 1530 08/21/17 1530 Imaging Last 48 hours Impressions Brain MRI 08/22/17 0000 Signed Impressions: Service Date/Time: Tuesday, August 22, 2017 11:16 - CONCLUSION: Stable MRI of the brain. Alexx Alonzo MD Head CT 08/21/171511 Signed Impressions: Service Date/Time: Monday, August 21, 2017 17:14 - CONCLUSION: No significant change has occurred. Matt Valerio MD Chest X-Ray 08/21/171511 Signed Impressions: Service Date/Time: Monday, August 21, 2017 15:48 - CONCLUSION: No significant change has occurred. Matt Valerio MD (Cathi Pisano) Assessment and Plan Assessment and Plan Elevated troponin without c/o CP or SOB Atrial fibrillation with history of CVA ischemic and hemorrhagic. Unable to take anticoagulants ASHD HTN Right lower extremity edema History of IVC filter Elderly Seizures PLAN Modify antihypertensive therapy.Cardizem may be exacerbating lower extremity edema Check digoxin level Right lower extremity doppler The daughter elects conservative treatment. The patient is not candidate for cardiac cath. Patient seen and evaluated by Dr Lopez who completed face to face encounter and physical exam and participated in evaluation and management. (Cathi Pisano) Assessment and Plan The exam, history, and the medical decision-making described in the above note were completed with the assistance of the mid-level provider. I reviewed and agree with the findings presented. I attest that I had a [id number] encounter with the patient on the same day, and personally performed and documented my assessment and findings in the medical record. Overall very frail elderly sick pt with seizure. Troponin rise secondary to stress of seizure, not a cath candidate IMO. (Lela Lopez MD) Cathi Pisano Aug 22, 2017 15:38 Llea Lopez MD Aug 22, 2017 19:33
[2017-08-22] MEDS: ATORVASTATIN 40 MG TAB PO SCH (16:57)
[2017-08-22] MEDS: lamoTRIgine 25 MG TAB PO SCH (16:57)
[2017-08-22] MEDS: FUROSEMIDE 40 MG TAB PO SCH (17:02)
--- NOTE | 2017-08-22 17:22 | RADRPT ---
EXAM DATE/TIME: 08/22/2017 16:44 [facility] COMPARISON: No previous studies available for comparison. INDICATIONS : Right leg swelling. MEDICAL HISTORY : Hypertension. Stroke. Hypercholesterolemia. Hearing loss. Glasses. Anticoagulant therapy. Diabetes . SURGICAL HISTORY : CABG Valve repair. PVC filter in leg. ENCOUNTER: Initial ACUITY: 1 day PAIN SCORE: 4/10 LOCATION: Right leg. TECHNIQUE: Venous ultrasound of the leg was performed from the inguinal ligament to the proximal calf. Real-josé e, color Doppler and spectral tracing, compression and augmentation techniques were used. FINDINGS: There is normal compressibility of the deep venous system from the inguinal region to the proximal ca lf. No echogenic clot is seen in the lumen of the common femoral, femoral, popliteal, and posterior tibial veins. There is a normal response of the venous system to proximal and distal augmentation an d respiration. CONCLUSION: Negative for deep venous thrombosis. Alfonso Hartman MD FACR on August 22, 2017 at 17:20 Board Certified Radiologist. This report was verified electronically.
[2017-08-22 17:29] VITALS: BP 165/77; PULSE 84; RESP 20; TEMP 97.6; O2SAT 92
[2017-08-22 20:58] VITALS: BP 168/82; PULSE 64; RESP 16; TEMP 98.2; O2SAT 95
[2017-08-22] MEDS: INSULIN DETEMIR 100 UNITS/ML VIAL SQ SCH (21:45)
[2017-08-22] MEDS: ENOXAPARIN SODIUM 40 MG/0.4 ML SYRINGE SQ SCH (21:46)
--- NOTE | 2017-08-22 23:01 | MG ---
cc: ADITYA BRANHAM M.D. Sex: M DATE OF STUDY: 08/22/2017 REQUESTING PHYSICIAN: Dr. Cullen. INTRODUCTION: An EEG was obtained on this 87 year-old patient being evaluated for seizures, history of stroke. MEDICATIONS: 1. Lamictil. 2. Lasix. 3. Aspirin. 4. Lopressor. 5. Digoxin. 6. Insulin. 7. Lovenox DESCRIPTION: The patient is described as awake during the study. There is a lot of artifact. There is a mixture of rhythms. There is low amplitude beta activity intermixed with artifact. There are theta and some intermixed delta rhythms. There is a lack of more sustained alpha activity. At times the slow rhythm seems to be more prominent on the left than right. Photic stimulation was unremarkable. INTERPRETATION: Abnormal EEG because of bilateral slowing possibly left worse than right suggestive of left more than right hemisphere structural abnormalities. No epileptiform features present. Aditya Branham MD [facility] /9:55 PM /10:54 PM
[2017-08-22 23:20] VITALS: BP 155/80; PULSE 65; RESP 16; TEMP 98.2; O2SAT 95
[2017-08-23] MEDS: lamoTRIgine 25 MG TAB PO SCH ×3 (01:40→17:42)
[2017-08-23 07:40] VITALS: BP 182/86; PULSE 83; RESP 18; TEMP 98; O2SAT 95
--- NOTE | 2017-08-23 07:47 | HHI.PR ---
Subjective Remarks She has a garbled speech Seems like oriented to self and person on questioning, patient has pain in the lower abdomen Patient is able to tell us about his whereabouts and day date month or president Unable to get good information freelance interpreter/translator used for interview Very limited review of system Objective Objective Results - Vital Signs Date Time Temp Pulse Resp B/P (MAP) Pulse Ox O2 Delivery O2 Flow Rate FiO2 08/22/17 23:20 98.2 65 16 155/80 (105) 95 08/22/17 20:58 98.2 64 16 168/82 (110) 95 08/22/17 17:29 97.6 84 20 165/77 (106) 92 08/22/17 12:00 98.1 70 18 155/80 (105) 98 I/O 08/22/17 08/22/17 08/22/17 08/23/17 08/23/17 08/23/17 07:00 15:00 23:00 07:00 15:00 23:00 Intake Total 744 ml Balance 744 ml Intake Oral 240 ml IV Total 504 ml # Voids 2 3 # Bowel Movements 0 Result Diagram: 08/21/17 1530 08/21/17 1530 Imaging Last Impressions Head CT 08/21/17 1512 Signed Impressions: Service Date/Time: Monday, August 21, 2017 17:14 - CONCLUSION: No significant change has occurred. Matt Valerio MD Chest X-Ray 08/21/171511 Signed Impressions: Service Date/Time: Monday, August 21, 2017 15:48 - CONCLUSION: No significant change has occurred. Matt Valerio MD Physical Exam Physical Exam GENERAL: This is a well-nourished, well-developed patient, in no apparent distress. SKIN: No rashes, ecchymoses or lesions. Cool and dry. HEAD: Atraumatic. Normocephalic. No temporal or scalp tenderness. EYES: Pupils equal round and reactive. Extraocular motions intact. No scleral icterus. No injection or drainage. ENT: Airway patent. NECK: Trachea midline. Supple, CARDIOVASCULAR: Irregularly irregular, no murmurs. No gallop RESPIRATORY: Clear to auscultation. Breath sounds equal bilaterally. No wheezes , rales, or rhonchi. GASTROINTESTINAL: Abdomen soft, questionable tender in the lower abdomen, nondistended. No hepato-splenomegaly, or palpable masses. No guarding. No rigidity noted above MUSCULOSKELETAL: Right leg and foot noted edematous, 1-2+, this is chronic. Bilateral pedal pulses 2+ bilaterally. NEUROLOGICAL: Awake, oriented to self and others. Speech garbled. Speaks mainly [place]. Doesn't follow commands consistently. Right-sided hemiparesis. Facial droop. A/P Assessment and Plan (1) Recurrent seizures ICD Codes: G40.909 - Epilepsy, unspecified, not intractable, without status epilepticus Status: Acute (2) Elevated troponin ICD Codes: R74.8 - Abnormal levels of other serum enzymes Status: Acute (3) Hypertension, uncontrolled ICD Codes: I10 - Essential (primary) hypertension Status: Acute (4) History of CVA with residual deficit ICD Codes: I69.30 - Unspecified sequelae of cerebral infarction Status: Chronic (5) Diabetes 1.5, managed as type 2 ICD Codes: E10.9 - Type 1 diabetes mellitus without complications Status: Chronic (6) Hyperlipidemia ICD Codes: E78.5 - Hyperlipidemia, unspecified Status: Chronic (7) Atrial fibrillation ICD Codes: I48.91 - Unspecified atrial fibrillation Status: Chronic (8) Hx of deep venous thrombosis ICD Codes: Z86.718 - Personal history of other venous thrombosis and embolism Status: Chronic Assessment and Plan 87-year-old elderly male with history of stroke and right-sided hemiparesis and grand mal seizures. Presented to the emergency room after having a seizure with a prolonged postictal state. Recurrent seizures -Continue with seizure precautions -Neurology consultation appreciated -Continue with Lamictal 50 mg by mouth twice a day -EEG reviewed no seizure activity -Ativan as needed for seizures -MRI report reviewed no acute event Elevated troponin, rule out acute coronary syndrome. -Troponin 3 sets completed, results indeterminate. Patient was noted with elevated blood pressure. -Cardiology consultation appreciated. As per cardiology. -Continuous cardiac telemetry -Continue with aspirin 81 mg by mouth daily Hypertension uncontrolled -Continue with Lasix 40 mg by mouth daily -Continue with diltiazem 360 mg by mouth daily -Continue with Lopressor 50 mg by mouth twice a day -We'll add Vasotec 1.25 mg IV every 6 when necessary for systolic 170 and diastolic and 90 Type 2 diabetes -Accu-Cheks before meals and at bedtime with insulin therapy as needed Atrial fibrillation, stable -Continue with diltiazem and digoxin -Continue with aspirin Hyperlipidemia -Continue with atorvastatin 40 mg by mouth daily History DVT, has IVC filter -Lovenox 40 mg subcutaneous daily for DVT prophylaxis Lower abdominal pain questionable constipation X-ray of the abdomen Milk of magnesium 1 when necessary basis Home medications reviewed, initiated as indicated Consult physical therapy for evaluation End-of-life care issues have been addressed, patient is DO NOT RESUSCITATE per POAs request Lovenox for DVT prophylaxis Plan of care discussed RN. Further management of the patient will be dependent on the hospital course History and physical reviewed Consultation report reviewed Medications reviewed Radiological data and labs reviewed Chioma Davidson MD Aug 23, 2017 07:46
[2017-08-23] MEDS ORDERED: LISI-519 PO (07:57)
[2017-08-23] MEDS ORDERED: COZA50TA PO (07:57)
[2017-08-23] MEDS ORDERED: LAMO25 PO (07:57)
[2017-08-23] MEDS ORDERED: MAGNESIUM HYDROXIDE SUSP 30 ML CUP PO PRN (08:00)
[2017-08-23] MEDS: INSULIN ASPART SUPPLEMENTAL SCALE SQ SCH ×4 (08:00→21:00)
--- NOTE | 2017-08-23 08:00 | HHI.FF ---
Face to Face Verification Diagnosis: (1) Recurrent seizures (2) Hypertension, uncontrolled (3) Atrial fibrillation (4) Diabetes 1.5, managed as type 2 (5) History of CVA with residual deficit Physical Therapy Order: Evaluate and Treat Occupational Therapy Order: Evaluate and Treat Home Health Nursing Order: Medical education I have seen patient Guille Huff on 08/23/17. My clinical findings support the need for the requested home health care services because: Ltd mobility - disease progression Limited ability to care for self I certify that my clinical findings support that this patient is homebound because: Impaired cognitive ability/safety Unsteady gait/balance Chioma Davidson MD Aug 23, 2017 08:00
[2017-08-23] MEDS: SODIUM CHLOR 0.45% 1000 ML INJ 1,000 ML IV SCH ×2 (08:45→21:00)
[2017-08-23] MEDS: DILTIAZEM-CD 180 MG CAP ER PO SCH (09:00)
[2017-08-23] MEDS: DIGOXIN 0.125 MG TAB PO SCH (09:00)
--- NOTE | 2017-08-23 09:09 | RADRPT ---
EXAM DATE/TIME: 08/23/2017 08:17 [facility] COMPARISON: No previous studies available for comparison. INDICATIONS : Abdomen pain. MEDICAL HISTORY : Cardiovascular disease. Stroke Seizures SURGICAL HISTORY : CABG. ENCOUNTER: Subsequent ACUITY: 3 days PAIN SCORE: Non-responsive. LOCATION: Bilateral Abdomen. FINDINGS: Supine view of the abdomen was performed. The abdominal bowel gas pattern is normal. No abnormal ma sses, calcifications, or organomegaly is seen. Multiple small pellets identified overlying the lower pelvis. Vena cava filter is noted in place. Degenerative disease with marginal spondylosis noted. CONCLUSION: No evidence of acute process. Thien Sosa MD on August 23, 2017 at 9:06 Board Certified Radiologist. This report was verified electronically.
[2017-08-23] MEDS: FINASTERIDE 5 MG TAB PO SCH (10:24)
[2017-08-23] MEDS: LISINOPRIL 5 MG TAB PO SCH (10:24)
[2017-08-23] MEDS: ASPIRIN 81 MG CHEW TAB PO SCH (10:24)
[2017-08-23] MEDS: LOSARTAN 50 MG TAB PO SCH (10:25)
[2017-08-23] MEDS: METOPROLOL TARTRATE 50 MG TAB PO SCH ×2 (10:25→21:00)
[2017-08-23 12:21] VITALS: BP 181/91; PULSE 73; RESP 16; TEMP 97.3; O2SAT 96
[2017-08-23 13:41] VITALS: BP 166/89
--- NOTE | 2017-08-23 14:59 | PD.CARD.PN ---
Subjective Subjective Remarks BP high today. Difficulty swallowing water. RLE doppler negative for DVT. No complaints of CP or SOB (Cathi Pisano) Objective Medications Current Medications Medications (Trade) Dose Ordered Sig/Reynold Route Start Time Stop Time Status Last Admin (NS Flush) 2 ml UNSCH PRN IV FLUSH 08/21/17 15:15 08/21/17 15:32 (Aspirin Chew) 81 mg DAILY PO 08/22/17 09:00 08/23/17 10:24 (Lanoxin) 0.125 mg DAILY PO 08/22/17 09:00 08/23/17 09:00 (Lasix) 40 mg DAILY@1600 PO 08/22/17 16:00 08/22/17 17:02 (Levemir Inj) 45 units HS SQ 08/21/17 21:00 08/22/17 21:45 (Lopressor) 50 mg BID PO 08/21/17 21:00 08/23/17 10:25 (Lipitor) 40 mg DAILY@1600 PO 08/22/17 16:00 08/22/17 16:57 (D50w (Vial) Inj) 50 ml UNSCH PRN IV PUSH 08/21/17 20:45 (Glucagon Inj) 1 mg UNSCH PRN OTHER 08/21/17 20:45 (NovoLOG SUPPLEMENTAL SCALE) 1 ACHS SLIDING SCALE SQ 08/21/17 21:00 08/22/17 21:45 Sodium Chloride 1,000 ml @ 84 mls/hr [id number] IV 08/21/17 21:00 08/23/17 08:45 (Lovenox Inj) 40 mg Q24H SQ 08/21/17 21:00 08/22/17 21:46 (Ativan Inj) 1 mg Q4H PRN IV PUSH 08/21/17 20:45 (Proscar) 5 mg DAILY PO 08/22/17 09:00 08/23/17 10:24 (Vasotec Inj) 1.25 mg Q6H PRN IV PUSH 08/22/17 09:30 08/23/17 13:06 (LaMICtal) 50 mg Q8H PO 08/22/17 17:00 08/23/17 10:26 (Cardizem Cd) 180 mg DAILY PO 08/23/17 09:00 08/23/17 09:00 (Cozaar) 100 mg DAILY PO 08/23/17 09:00 08/23/17 10:25 (Milk Of Magnesia Liq) 30 ml DAILY PRN PO 08/23/17 08:00 (Prinivil) 5 mg DAILY PO 08/23/17 09:00 08/23/17 10:24 Vital Signs / I&O Vital Signs Date Time Temp Pulse Resp B/P (MAP) Pulse Ox O2 Delivery O2 Flow Rate FiO2 08/23/17 13:41 166/89 (114) 08/23/17 12:21 97.3 73 16 181/91 (121) 96 08/23/17 07:40 98.0 83 18 182/86 (118) 95 08/22/17 23:20 98.2 65 16 155/80 (105) 95 08/22/17 20:58 98.2 64 16 168/82 (110) 95 08/22/17 17:29 97.6 84 20 165/77 (106) 92 I/O 08/22/17 08/22/17 08/22/17 08/23/17 08/23/17 08/23/17 07:00 15:00 23:00 07:00 15:00 23:00 Intake Total 744 ml Balance 744 ml Intake Oral 240 ml IV Total 504 ml # Voids 2 3 # Bowel Movements 0 Physical Exam GENERAL: Elderly male, daughter bedside. Sitting straight up in the bed with support SKIN: Warm and dry. HEAD: Normocephalic. EYES: No scleral icterus. No injection or drainage. NECK: Supple, trachea midline. CARDIOVASCULAR: Regular rate and rhythm without murmurs, gallops, or rubs. RESPIRATORY: Breath sounds equal bilaterally. No accessory muscle use. GASTROINTESTINAL: Abdomen soft, non-tender, nondistended. MUSCULOSKELETAL: RLE edema 3+, right hemiparesis BACK: Nontender without obvious deformity. No CVA tenderness. Imaging Last 72 hours Impressions Abdomen X-Ray 08/23/17 0000 Signed Impressions: Service Date/Time: Wednesday, August 23, 2017 08:17 - CONCLUSION: No evidence of acute process. Thien Sosa MD Lower Extremity Ultrasound 08/22/17 0000 Signed Impressions: Service Date/Time: Tuesday, August 22, 2017 16:44 - CONCLUSION: Negative for deep venous thrombosis. Alfonso Hartman MD FACR Brain MRI 08/22/17 0000 Signed Impressions: Service Date/Time: Tuesday, August 22, 2017 11:16 - CONCLUSION: Stable MRI of the brain. Alexx Alonzo MD Head CT 08/21/17 1512 Signed Impressions: Service Date/Time: Monday, August 21, 2017 17:14 - CONCLUSION: No significant change has occurred. Matt Valerio MD Chest X-Ray 08/21/17 1512 Signed Impressions: Service Date/Time: Monday, August 21, 2017 15:48 - CONCLUSION: No significant change has occurred. Matt Valerio MD (Cathi Pisano) Assessment and Plan Assessment and Plan Elevated troponin without c/o CP or SOB Atrial fibrillation with history of CVA ischemic and hemorrhagic. Unable to take anticoagulants ASHD HTN Right lower extremity edema- negative for DVT History of IVC filter Elderly Seizures PLAN Add hydralazine 25 mg TID The daughter elects conservative treatment. The patient is not candidate for cardiac cath. Clear from cardiology standpoint for discharge once SBP <160 mmhg and DBP < 90 Patient seen and evaluated by Dr Lopez who completed face to face encounter and physical exam and participated in evaluation and management. (Cathi Pisano) Assessment and Plan The exam, history, and the medical decision-making described in the above note were completed with the assistance of the mid-level provider. I reviewed and agree with the findings presented. I attest that I had a [id number] encounter with the patient on the same day, and personally performed and documented my assessment and findings in the medical record. (Lela Lopez MD) Cathi Pisano Aug 23, 2017 14:59 Lela Lopez MD Aug 24, 2017 13:19
[2017-08-23] MEDS: hydrALAZINE HCL 25 MG TAB PO SCH ×2 (16:38→21:01)
[2017-08-23] MEDS: ATORVASTATIN 40 MG TAB PO SCH (16:39)
[2017-08-23] MEDS: FUROSEMIDE 40 MG TAB PO SCH (16:39)
[2017-08-23 18:17] VITALS: BP 154/74; PULSE 62; RESP 18; TEMP 98.2; O2SAT 96
[2017-08-23 20:29] VITALS: BP 162/79; PULSE 67; RESP 18; TEMP 96.9; O2SAT 96
[2017-08-23] MEDS: INSULIN DETEMIR 100 UNITS/ML VIAL SQ SCH (21:00)
[2017-08-23] MEDS: ENOXAPARIN SODIUM 40 MG/0.4 ML SYRINGE SQ SCH (21:02)
--- NOTE | 2017-08-23 22:41 | HHI.PR ---
Review/Management Diagnosis Seizure--stable on lamictal 50 mg tid Plan continue current lamictal dose Ok from neurology standpoint to discharge tomorrow if stable Diagnosis/Plan: Subjective Subjective Comments No acute events reported No headache No seizures tolerating higher dose of lamictal Active Medications Current Medications Medications (Trade) Dose Ordered Sig/Reynold Route Start Time Stop Time Status Last Admin (NS Flush) 2 ml UNSCH PRN IV FLUSH 08/21/17 15:15 08/21/17 15:32 (Aspirin Chew) 81 mg DAILY PO 08/22/17 09:00 08/23/17 10:24 (Lanoxin) 0.125 mg DAILY PO 08/22/17 09:00 08/23/17 09:00 (Lasix) 40 mg DAILY@1600 PO 08/22/17 16:00 08/23/17 16:39 (Levemir Inj) 45 units HS SQ 08/21/17 21:00 08/23/17 21:00 (Lopressor) 50 mg BID PO 08/21/17 21:00 08/23/17 21:00 (Lipitor) 40 mg DAILY@1600 PO 08/22/17 16:00 08/23/17 16:39 (D50w (Vial) Inj) 50 ml UNSCH PRN IV PUSH 08/21/17 20:45 (Glucagon Inj) 1 mg UNSCH PRN OTHER 08/21/17 20:45 (NovoLOG SUPPLEMENTAL SCALE) 1 ACHS SLIDING SCALE SQ 08/21/17 21:00 08/23/17 21:00 Sodium Chloride 1,000 ml @ 84 mls/hr [id number] IV 08/21/17 21:00 08/23/17 21:00 (Lovenox Inj) 40 mg Q24H SQ 08/21/17 21:00 08/23/17 21:02 (Ativan Inj) 1 mg Q4H PRN IV PUSH 08/21/17 20:45 (Proscar) 5 mg DAILY PO 08/22/17 09:00 08/23/17 10:24 (Vasotec Inj) 1.25 mg Q6H PRN IV PUSH 08/22/17 09:30 08/23/17 13:06 (LaMICtal) 50 mg Q8H PO 08/22/17 17:00 08/23/17 17:42 (Cardizem Cd) 180 mg DAILY PO 08/23/17 09:00 08/23/17 09:00 (Cozaar) 100 mg DAILY PO 08/23/17 09:00 08/23/17 10:25 (Milk Of Magnesia Liq) 30 ml DAILY PRN PO 08/23/17 08:00 (Prinivil) 5 mg DAILY PO 08/23/17 09:00 08/23/17 10:24 (Apresoline) 25 mg Q8HR PO 08/23/17 15:00 08/23/17 21:01 Allergies Allergies Coded Allergies penicillin G (Verified Allergy, Unknown, HIVES, 08/21/17) Exam I&O / VS 08/23/17 08/23/17 08/24/17 15:00 23:00 07:00 # Voids 4 # Bowel Movements 0 Vital Signs Date Time Temp Pulse Resp B/P (MAP) Pulse Ox O2 Delivery O2 Flow Rate FiO2 08/23/17 20:29 96.9 67 18 162/79 (106) 96 08/23/17 18:17 98.2 62 18 154/74 (100) 96 08/23/17 13:41 166/89 (114) 08/23/17 12:21 97.3 73 16 181/91 (121) 96 08/23/17 07:40 98.0 83 18 182/86 (118) 95 08/22/17 23:20 98.2 65 16 155/80 (105) 95 Exam Comments alert, follow commands CN intact Objective Radiology Results MRI brain=--chronic left MCA stroke with no acute change Diagnostic Tests EEG----bilateral slowing , worse on left. No epileptiform discharges Larry Lobato PhD MD Aug 23, 2017 22:41
[2017-08-23 23:48] VITALS: BP 141/72; PULSE 71; RESP 18; TEMP 98.1; O2SAT 96
[2017-08-24] MEDS: lamoTRIgine 25 MG TAB PO SCH ×3 (02:07→17:12)
[2017-08-24 03:30] VITALS: BP 145/80; PULSE 72; RESP 18; TEMP 98.1; O2SAT 97
[2017-08-24] MEDS: hydrALAZINE HCL 25 MG TAB PO SCH (05:40)
[2017-08-24] MEDS: INSULIN ASPART SUPPLEMENTAL SCALE SQ SCH ×2 (08:00→12:00)
[2017-08-24 08:06] VITALS: BP 179/86; PULSE 76; RESP 20; TEMP 97.4; O2SAT 94
[2017-08-24] MEDS: METOPROLOL TARTRATE 50 MG TAB PO SCH (08:13)
[2017-08-24] MEDS: ASPIRIN 81 MG CHEW TAB PO SCH (08:13)
[2017-08-24] MEDS: LOSARTAN 50 MG TAB PO SCH (08:14)
[2017-08-24] MEDS: LISINOPRIL 5 MG TAB PO SCH (08:16)
[2017-08-24] MEDS: FINASTERIDE 5 MG TAB PO SCH (08:16)
[2017-08-24] MEDS: DILTIAZEM-CD 180 MG CAP ER PO SCH (08:16)
[2017-08-24] MEDS: SODIUM CHLOR 0.45% 1000 ML INJ 1,000 ML IV SCH (08:24)
[2017-08-24] MEDS: DIGOXIN 0.125 MG TAB PO SCH (08:24)
[2017-08-24 12:29] VITALS: BP 150/71; PULSE 66; RESP 24; TEMP 96.3; O2SAT 94
--- NOTE | 2017-08-24 13:59 | PD.CARD.PN ---
Subjective Subjective Remarks The patient and his daughter are very anxious to go home. The patient's BP is better with increased hydralazine dose. he denies CP or SOB. RLE edema stable. Did well with PT. (Cathi Pisano) Objective Medications Current Medications Medications (Trade) Dose Ordered Sig/Reynold Route Start Time Stop Time Status Last Admin (NS Flush) 2 ml UNSCH PRN IV FLUSH 08/21/17 15:15 08/21/17 15:32 (Aspirin Chew) 81 mg DAILY PO 08/22/17 09:00 08/24/17 08:13 (Lanoxin) 0.125 mg DAILY PO 08/22/17 09:00 08/24/17 08:24 (Lasix) 40 mg DAILY@1600 PO 08/22/17 16:00 08/23/17 16:39 (Levemir Inj) 45 units HS SQ 08/21/17 21:00 08/23/17 21:00 (Lopressor) 50 mg BID PO 08/21/17 21:00 08/24/17 08:13 (Lipitor) 40 mg DAILY@1600 PO 08/22/17 16:00 08/23/17 16:39 (D50w (Vial) Inj) 50 ml UNSCH PRN IV PUSH 08/21/17 20:45 (Glucagon Inj) 1 mg UNSCH PRN OTHER 08/21/17 20:45 (NovoLOG SUPPLEMENTAL SCALE) 1 ACHS SLIDING SCALE SQ 08/21/17 21:00 08/23/17 21:00 Sodium Chloride 1,000 ml @ 84 mls/hr [id number] IV 08/21/17 21:00 08/24/17 08:24 (Lovenox Inj) 40 mg Q24H SQ 08/21/17 21:00 08/23/17 21:02 (Ativan Inj) 1 mg Q4H PRN IV PUSH 08/21/17 20:45 (Proscar) 5 mg DAILY PO 08/22/17 09:00 08/24/17 08:16 (Vasotec Inj) 1.25 mg Q6H PRN IV PUSH 08/22/17 09:30 08/23/17 13:06 (LaMICtal) 50 mg Q8H PO 08/22/17 17:00 08/24/17 08:15 (Cardizem Cd) 180 mg DAILY PO 08/23/17 09:00 08/24/17 08:16 (Cozaar) 100 mg DAILY PO 08/23/17 09:00 08/24/17 08:14 (Milk Of Magnesia Liq) 30 ml DAILY PRN PO 08/23/17 08:00 (Prinivil) 5 mg DAILY PO 08/23/17 09:00 08/24/17 08:16 (Apresoline) 50 mg Q8HR PO 08/24/17 14:00 Vital Signs / I&O Vital Signs Date Time Temp Pulse Resp B/P (MAP) Pulse Ox O2 Delivery O2 Flow Rate FiO2 08/24/17 12:29 96.3 66 24 150/71 (97) 94 08/24/17 08:06 97.4 76 20 179/86 (117) 94 08/24/17 03:30 98.1 72 18 145/80 (101) 97 08/23/17 23:48 98.1 71 18 141/72 (95) 96 08/23/17 20:29 96.9 67 18 162/79 (106) 96 08/23/17 18:17 98.2 62 18 154/74 (100) 96 I/O 08/23/17 08/23/17 08/23/17 08/24/17 08/24/17 08/24/17 07:00 15:00 23:00 07:00 15:00 23:00 Intake Total 2101 ml Balance 2101 ml Intake Oral 480 ml IV Total 1621 ml # Voids 4 3 # Bowel Movements 0 2 Physical Exam GENERAL: Elderly male, daughter bedside. SKIN: Warm and dry. HEAD: Normocephalic. EYES: No scleral icterus. No injection or drainage. NECK: Supple, trachea midline. CARDIOVASCULAR: Regular rate and rhythm without murmurs, gallops, or rubs. RESPIRATORY: Breath sounds equal bilaterally. No accessory muscle use. GASTROINTESTINAL: Abdomen soft, non-tender, nondistended. MUSCULOSKELETAL: RLE edema 3+, right hemiparesis BACK: Nontender without obvious deformity. No CVA tenderness. Imaging Last 72 hours Impressions Abdomen X-Ray 08/23/17 0000 Signed Impressions: Service Date/Time: Wednesday, August 23, 2017 08:17 - CONCLUSION: No evidence of acute process. Thien Sosa MD Lower Extremity Ultrasound 08/22/17 0000 Signed Impressions: Service Date/Time: Tuesday, August 22, 2017 16:44 - CONCLUSION: Negative for deep venous thrombosis. Alfonso Hartman MD FACR Brain MRI 08/22/17 0000 Signed Impressions: Service Date/Time: Tuesday, August 22, 2017 11:16 - CONCLUSION: Stable MRI of the brain. Alexx Aolnzo MD Head CT 08/21/171511 Signed Impressions: Service Date/Time: Monday, August 21, 2017 17:14 - CONCLUSION: No significant change has occurred. Matt Valerio MD Chest X-Ray 08/21/171511 Signed Impressions: Service Date/Time: Monday, August 21, 2017 15:48 - CONCLUSION: No significant change has occurred. Matt Valerio MD (Cathi Pisano) Assessment and Plan Assessment and Plan Elevated troponin without c/o CP or SOB Atrial fibrillation with history of CVA ischemic and hemorrhagic. Unable to take anticoagulants ASHD HTN Right lower extremity edema- negative for DVT History of IVC filter Elderly Seizures PLAN The patient is clear for discharge from cardiac standpoint Patient seen and evaluated by Dr Lopez who completed face to face encounter and physical exam and participated in evaluation and management. (Cathi Pisano) Assessment and Plan The exam, history, and the medical decision-making described in the above note were completed with the assistance of the mid-level provider. I reviewed and agree with the findings presented. I attest that I had a [id number] encounter with the patient on the same day, and personally performed and documented my assessment and findings in the medical record. (Lela Lopez MD) Cathi Pisano Aug 24, 2017 13:59 Lela Lopez MD Aug 25, 2017 15:28
[2017-08-24] MEDS ORDERED: hydrALAZINE HCL 25 MG TAB PO SCH (14:00)
--- NOTE | 2017-08-24 14:42 | HHI.PR ---
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 Very limited review of system duaghter at bedside Objective Objective Results - Vital Signs Date Time Temp Pulse Resp B/P (MAP) Pulse Ox O2 Delivery O2 Flow Rate FiO2 08/24/17 12:29 96.3 66 24 150/71 (97) 94 08/24/17 08:06 97.4 76 20 179/86 (117) 94 08/24/17 03:30 98.1 72 18 145/80 (101) 97 08/23/17 23:48 98.1 71 18 141/72 (95) 96 08/23/17 20:29 96.9 67 18 162/79 (106) 96 08/23/17 18:17 98.2 62 18 154/74 (100) 96 I/O 08/23/17 08/23/17 08/23/17 08/24/17 08/24/17 08/24/17 06:59 14:59 22:59 06:59 14:59 22:59 Intake Total 2101 ml Balance 2101 ml Intake Oral 480 ml IV Total 1621 ml # Voids 4 3 # Bowel Movements 0 2 Result Diagram: 08/21/17 1530 08/21/17 1530 Imaging Last Impressions Head CT 08/21/17 1512 Signed Impressions: Service Date/Time: Monday, August 21, 2017 17:14 - CONCLUSION: No significant change has occurred. Matt Valerio MD Chest X-Ray 08/21/17 151 Signed Impressions: Service Date/Time: Monday, August 21, 2017 15:48 - CONCLUSION: No significant change has occurred. Matt Valerio MD Physical Exam Physical Exam GENERAL: This is a well-nourished, well-developed patient, in no apparent distress. SKIN: No rashes, ecchymoses or lesions. Cool and dry. HEAD: Atraumatic. Normocephalic. No temporal or scalp tenderness. EYES: Pupils equal round and reactive. Extraocular motions intact. No scleral icterus. No injection or drainage. ENT: Airway patent. NECK: Trachea midline. Supple, CARDIOVASCULAR: Irregularly irregular, no murmurs. No gallop RESPIRATORY: Clear to auscultation. Breath sounds equal bilaterally. No wheezes , rales, or rhonchi. GASTROINTESTINAL: Abdomen soft, questionable tender in the lower abdomen, nondistended. No hepato-splenomegaly, or palpable masses. No guarding. No rigidity noted above MUSCULOSKELETAL: Right leg and foot noted edematous, 1-2+, this is chronic. Bilateral pedal pulses 2+ bilaterally. NEUROLOGICAL: Awake, oriented to self and others. Speech garbled. Speaks mainly Icelandic. Doesn't follow commands consistently. Right-sided hemiparesis. Facial droop. A/P Assessment and Plan (1) Recurrent seizures ICD Codes: G40.909 - Epilepsy, unspecified, not intractable, without status epilepticus Status: Acute (2) Elevated troponin ICD Codes: R74.8 - Abnormal levels of other serum enzymes Status: Acute (3) Hypertension, uncontrolled ICD Codes: I10 - Essential (primary) hypertension Status: Acute (4) History of CVA with residual deficit ICD Codes: I69.30 - Unspecified sequelae of cerebral infarction Status: Chronic (5) Diabetes 1.5, managed as type 2 ICD Codes: E10.9 - Type 1 diabetes mellitus without complications Status: Chronic (6) Hyperlipidemia ICD Codes: E78.5 - Hyperlipidemia, unspecified Status: Chronic (7) Atrial fibrillation ICD Codes: I48.91 - Unspecified atrial fibrillation Status: Chronic (8) Hx of deep venous thrombosis ICD Codes: Z86.718 - Personal history of other venous thrombosis and embolism Status: Chronic Assessment and Plan 87-year-old elderly male with history of stroke and right-sided hemiparesis and grand mal seizures. Presented to the emergency room after having a seizure with a prolonged postictal state. Recurrent seizures -Continue with seizure precautions -Neurology consultation appreciated. ok to dc -Continue with Lamictal 50 mg by mouth twice a day -EEG reviewed no seizure activity -Ativan as needed for seizures -MRI report reviewed no acute event Elevated troponin, rule out acute coronary syndrome. -Troponin 3 sets completed, results indeterminate. Patient was noted with elevated blood pressure. -Cardiology consultation appreciated. As per cardiology ok to dc . -Continue with aspirin 81 mg by mouth daily Hypertension uncontrolled -Continue with Lasix 40 mg by mouth daily -Continue with diltiazem 360 mg by mouth daily -Continue with Lopressor 50 mg by mouth twice a day -We'll add Vasotec 1.25 mg IV every 6 when necessary for systolic 170 and diastolic and 90 -Daughter his blood pressure at home is always normal. His father doesn't like this environment. She will check blood pressure at home and if it remains high she will call primary care doctor. Type 2 diabetes -Accu-Cheks before meals and at bedtime with insulin therapy as needed Atrial fibrillation, stable -Continue with diltiazem and digoxin -Continue with aspirin Hyperlipidemia -Continue with atorvastatin 40 mg by mouth daily History DVT, has IVC filter -Lovenox 40 mg subcutaneous daily for DVT prophylaxis Lower abdominal pain questionable constipation X-ray of the abdomen Milk of magnesium 1 when necessary basis Home medications reviewed, initiated as indicated Consult physical therapy for evaluation End-of-life care issues have been addressed, patient is DO NOT RESUSCITATE per POAs request Lovenox for DVT prophylaxis Plan of care discussed RN. Further management of the patient will be dependent on the hospital course Plan to discharge him home with daughter who takes care of him Discussed with RN Chioma Davidson MD Aug 24, 2017 14:42
[2017-08-24] MEDS: ATORVASTATIN 40 MG TAB PO SCH (15:00)
[2017-08-24] MEDS: FUROSEMIDE 40 MG TAB PO SCH (15:00)
== END 2017-08-24 18:17 | disposition home or self-care (01) ==
LOC: NEPC 15:03 → NEDA 18:57 → NEPGCP 22:16
PROVIDERS: ADMIT Specialist; ATTEND Specialist
DX: G40.409 Other generalized epilepsy and epileptic syndromes, not intractable, without status epilepticus (principal); R74.8 Abnormal levels of other serum enzymes; I45.10 Unspecified right bundle-branch block; R94.31 Abnormal electrocardiogram [ECG] [EKG]; R94.01 Abnormal electroencephalogram [EEG]; R10.30 Lower abdominal pain, unspecified; I10 Essential (primary) hypertension; R13.10 Dysphagia, unspecified; E78.00 Pure hypercholesterolemia, unspecified; I48.2 Chronic atrial fibrillation; I69.351 Hemiplegia and hemiparesis following cerebral infarction affecting right dominant side; N40.0 Benign prostatic hyperplasia without lower urinary tract symptoms; R60.0 Localized edema; E10.65 Type 1 diabetes mellitus with hyperglycemia; H91.90 Unspecified hearing loss, unspecified ear; Z95.1 Presence of aortocoronary bypass graft; Z79.899 Other long term (current) drug therapy; Z79.82 Long term (current) use of aspirin; Z86.718 Personal history of other venous thrombosis and embolism; Z74.01 Bed confinement status; Z99.3 Dependence on wheelchair; Z66 Do not resuscitate; Z86.73 Personal history of transient ischemic attack (TIA), and cerebral infarction without residual deficits
CPT/HCPCS: 70450; 70553; 71010; 74000; 80053; 80061; 80162; 80307; 81001; 82948; 84443; 84484; 85025; 85610; 85730; 93005; 93971; 95819; 96361; 96372; 96374; A9579; G0378; G8987-GP; G8988-GP; J1650; J1815